=== PATIENT | female | born 1960 | race Caucasian/White ===

== ENCOUNTER 2020-03-15 13:59 | Outpatient (CLI) | payer OTHER, SELFPAY ==
--- NOTE | ~2020-03-15 | XR_ITS ---
EXAMINATION: XR chest 2V EXAM DATE: 03/15/2020 14:26 INDICATION: Preoperative. Hypertension. TECHNIQUE: Frontal and lateral projections of the chest obtained and reviewed. There is no prior clary dy for comparison. FINDINGS: The lungs are clear. There are no pleural effusions. The cardiomediastinal silhouette is within normal limits. There is no pneumothorax suspected. Mild thoracic spondylosis. IMPRESSION: No acute cardiopulmonary findings. Reviewed, dictated and finalized at location A.
== END 2020-03-15 14:00 | disposition home or self-care (01) ==
PROVIDERS: PCP Internal Medicine; Visit Provider Internal Medicine
DX: I10 Essential (primary) hypertension (principal)
CPT/HCPCS: 71046

== ENCOUNTER 2020-05-19 14:54 | Outpatient (CLI) | payer OTHER, SELFPAY ==
--- NOTE | ~2020-05-19 | MM_ITS ---
EXAMINATION: MM screening [facility] BI w alan HISTORY: Screening TECHNIQUE: Craniocaudal and mediolateral oblique 3-D tomosynthesis images were obtained and synthetic 2-D images were generated. CAD analysis was submitted and interpreted. COMPARISON: Comparison to multiple prior studies sequentially, with oldest reviewed study dated 05/31. BREAST PARENCHYMAL COMPOSITION: The breasts are heterogeneously dense, which may obscure small masses . FINDINGS: There are stable benign bilateral breast masses and calcifications. There is no evidence of suspicious mass, calcification, or architectural distortion to suggest malignancy in either breast. There has been no suspicious interval change. IMPRESSION: 1. No mammographic evidence of malignancy. 2. Recommend routine screening mammography in one year. BI-RADS Category 2: Benign finding(s). Reviewed, dictated and finalized at location A.
== END 2020-05-19 14:55 | disposition home or self-care (01) ==
LOC: CHSIMG 14:55
PROVIDERS: PCP Internal Medicine; Visit Provider Internal Medicine
DX: Z12.31 Encounter for screening mammogram for malignant neoplasm of breast (principal)
CPT/HCPCS: 77063; 77067

== ENCOUNTER 2021-06-11 13:25 | Outpatient (CLI) | payer OTHER, SELFPAY ==
--- NOTE | ~2021-06-11 | MM_ITS ---
EXAMINATION: MM screening [facility] BI w alan HISTORY: Screening TECHNIQUE: Craniocaudal and mediolateral oblique 3-D tomosynthesis images were obtained and synthetic 2-D images were generated. CAD analysis was submitted and interpreted. COMPARISON: Comparison to multiple prior studies sequentially, with oldest reviewed study dated 06/23. BREAST PARENCHYMAL COMPOSITION: The breasts are heterogenously dense, which may obscure small masses FINDINGS: There is no evidence of suspicious mass, calcification, or architectural distortion to sugg est malignancy in either breast. There has been no suspicious interval change. IMPRESSION: 1. No mammographic evidence of malignancy. 2. Recommend routine screening mammography in one year. BI-RADS Category 1: Negative Reviewed, dictated and finalized at location A.
== END 2021-06-11 13:26 | disposition home or self-care (01) ==
LOC: CHSIMG 13:26
PROVIDERS: PCP Internal Medicine; Visit Provider Internal Medicine
DX: Z12.31 Encounter for screening mammogram for malignant neoplasm of breast (principal)
CPT/HCPCS: 77063; 77067

== ENCOUNTER 2022-07-01 07:58 | Outpatient (CLI) | payer OTHER, SELFPAY ==
--- NOTE | ~2022-07-01 | MM_ITS ---
EXAMINATION: MM screening [facility] BI w alan HISTORY: Screening mammogram TECHNIQUE: Craniocaudal and mediolateral oblique 3-D tomosynthesis images were obtained and synthetic 2-D images were generated. CAD analysis was submitted and interpreted. COMPARISON: 06/11/2021, 05/19/2020 BREAST PARENCHYMAL COMPOSITION: The breasts are heterogeneously dense, which may obscure small masses . FINDINGS: There is no suspicious mass, calcification, or architectural distortion to suggest malignan cy in either breast. There has been no suspicious interval change. IMPRESSION: 1. No mammographic evidence of malignancy. 2. Recommend routine screening mammography in one year. BI-RADS Category 1: Negative Reviewed, dictated and finalized at location A.
== END 2022-07-01 07:59 | disposition home or self-care (01) ==
LOC: CHSIMG 07:59
PROVIDERS: PCP Internal Medicine; Visit Provider Internal Medicine
DX: Z12.31 Encounter for screening mammogram for malignant neoplasm of breast (principal)
CPT/HCPCS: 77063; 77067

== ENCOUNTER 2024-05-17 07:14 | Outpatient (CLI) | payer OTHER, SELFPAY ==
--- NOTE | ~2024-05-17 | MM_ITS ---
EXAMINATION: MM screening [facility] BI w alan HISTORY: Screening TECHNIQUE: Craniocaudal and mediolateral oblique 3-D tomosynthesis images were obtained and synthetic 2-D images were generated. CAD analysis was submitted and interpreted. COMPARISON: Comparison to multiple prior studies sequentially, with oldest reviewed study dated 09/13. BREAST PARENCHYMAL COMPOSITION: Not dense: There are scattered areas of fibroglandular density. FINDINGS: There is no evidence of suspicious mass, calcification, or architectural distortion to sugg est malignancy in either breast. There has been no suspicious interval change. IMPRESSION: 1. No mammographic evidence of malignancy. 2. Recommend routine screening mammography in one year. BI-RADS Category 1: Negative Reviewed, dictated and finalized at location B.
--- NOTE | ~2024-05-17 | US_ITS ---
EXAMINATION: US soft tissue LE RT DATE: 05/17/2024 08:10 INDICATION: Right leg mass. TECHNIQUE: Multiple grayscale and Doppler ultrasound images of the right lower limb were obtained. COMPARISON: None FINDINGS: There is no abnormal mass in the lateral right ankle soft tissues in the patient's area of concern. IMPRESSION: 1. No abnormal mass in the lateral right ankle soft tissues in the patient's area of concern. Reviewed, dictated and finalized at location A. IMPRESSION: 1. No abnormal mass in the lateral right ankle soft tissues in the patient's ar ea of concern.
== END 2024-05-17 07:15 | disposition home or self-care (01) ==
LOC: CHSIMG 07:15
PROVIDERS: PCP Internal Medicine; Visit Provider Internal Medicine
DX: Z12.31 Encounter for screening mammogram for malignant neoplasm of breast (principal); R22.41 Localized swelling, mass and lump, right lower limb
CPT/HCPCS: 76882; 77063; 77067

== ENCOUNTER 2024-05-29 09:51 | Outpatient (CLI) | payer OTHER, SELFPAY ==
--- NOTE | ~2024-05-29 | MR_ITS ---
EXAMINATION: MR lower leg RT wo/w con DATE: 05/29/2024 11:44 INDICATION: Right leg soft tissue swelling/mass TECHNIQUE: Magnetic resonance imaging (MRI) of the right lower leg was performed without and with 17 mL Multihance intravenous contrast. A marker was placed over the mass. Sequences included axial, sag ittal and coronal T1-weighted FSE, axial T2-weighted FS FSE, axial T1-weighted FS FSE and post contra st axial, sagittal and coronal T1-weighted FS FSE were also obtained. COMPARISON: None. FINDINGS: There is diffuse subcutaneous edema throughout the right lower leg with distal predominance. The unde rlying musculature and tendons in the right calf appears normal. There is normal bone marrow signal t hroughout with no reactive edema, fracture or pathologic marrow replacing process. Neurovascular stru ctures are unremarkable. No abnormal masses, fluid collections or other abnormally enhancing lesions identified. IMPRESSION: 1. Distal predominant diffuse subcutaneous edema at the right calf. No abnormal masses, fluid collect ions, abnormal enhancing lesions or other correlate identified for the reported palpable abnormality at the posterolateral right ankle/distal lower leg. Reviewed, dictated and finalized at location A. IMPRESSION: 1. Distal predominant diffuse subcutaneous edema at the right calf. No abnormal masses, fluid collections, abnormal enhancing lesions or other correlate ident ified for the reported palpable abnormality at the posterolateral right ankle/d istal lower leg.
== END 2024-05-29 09:52 | disposition home or self-care (01) ==
LOC: CHSIMG 09:51
PROVIDERS: PCP Internal Medicine; Visit Provider Internal Medicine
DX: M79.89 Other specified soft tissue disorders (principal)
CPT/HCPCS: 73720; A9577

== ENCOUNTER 2025-01-19 12:18 | Outpatient (CLI) | payer OTHER, SELFPAY ==
--- NOTE | ~2025-01-19 | CT_ITS ---
CLINICAL INDICATION: GI hemorrhage COMPARISON: None. TECHNIQUE: Multiple contiguous axial images of the abdomen and pelvis were performed following the ad ministration of with 100 mL Omnipaque-350 intravenous contrast. This was not a CTA examination. The dose-length product (DLP) was 920.46 mGy-cm. Automated exposure control and iterative reconstruction technique were employed. FINDINGS/OBSERVATIONS: Visualized lower thorax: The bilateral lung bases are clear. The heart is of normal size, without pericardial effusion. Small hiatal hernia is present. Liver: The liver demonstrates homogeneous enhancement and is not enlarged. Gallbladder and biliary system: The gallbladder is only minimally distended, and otherwise unremarkable. Pancreas: The pancreas enhances homogeneously without ductal dilatation. Spleen: The spleen enhances homogeneously and is not enlarged. Kidneys: 2 cm focus of decreased attenuation within the interpolar region of the right kidney, likely representing a cyst for which focused ultrasound may be performed as follow-up for confirmation. The remainder of the bilateral kidneys otherwise enhance symmetrically without hydronephrosis or alexis l calculi. Adrenal glands: Unremarkable. Gastrointestinal tract: Fecal stasis within the rectum. Colonic diverticulosis without surrounding inflammatory change. Appendix: The appendix is not definitively visualized. However, no pericecal inflammatory change is identified suggest the presence of acute appendicitis. Vasculature: Calcified atherosclerotic disease. Lymph nodes: No pathologically enlarged or morphologically suspicious lymph nodes within the retroperitoneum or at the root of the mesentery. Pelvic structures: The bladder is only minimally distended, and otherwise unremarkable. The uterus is anteverted and anteflexed and significantly nodular and enlarged for a patient of this age. Body wall and musculoskeletal: Small fat-containing umbilical hernia. Age-appropriate degenerative disease within the lumbosacral spine. IMPRESSION: No findings within the colon or along the course of the small bowel to suggest the presence of acute GI hemorrhage. The uterus is heterogeneous, nodular and enlarged for a patient of this age for which focused ultraso und is recommended for further evaluation, as a malignancy may also have a similar appearance. 2 cm focus of fluid attenuation within the right kidney, most likely a cyst for which focused ultraso und may be performed nonemergently for confirmation. Reviewed, dictated and finalized at location A. IMPRESSION: No findings within the colon or along the course of the small bowel to suggest the presence of acute GI hemorrhage. The uterus is heterogeneous, nodular and enlarged for a patient of this age for which focused ultrasound is recommended for further evaluation, as a malignanc y may also have a similar appearance. 2 cm focus of fluid attenuation within the right kidney, most likely a cyst for which focused ultrasound may be performed nonemergently for confirmation.
[2025-01-19 12:44] LABS: Basophils Absolute Auto 0.07 K/mm3 (0.00-0.10); Basophils Percent Auto 0.7 % (0.0-1.0); Eosinophils Absolute Auto 0.07 K/mm3 (0.02-0.50); Eosinophils Percent Auto 0.7 % (1.0-6.0); Hematocrit 31.3 % (35.0-42.0); Hemoglobin 10.4 g/dL (11.7-13.8); Immature Granulocyte Absolute 0.09 K/mm3 (0.00-0.00); Immature Granulocyte Percent A 0.9 % (0.0-0.0); Immature Reticulocyte Fraction 24.1 % (2.0-16.52); Lymphocytes Absolute Auto 1.76 K/mm3 (1.10-4.50); Lymphocytes Percent Auto 17.8 % (18.0-42.0); Mean Corpuscular HGB Conc 33.2 g/dL (32-36); Mean Corpuscular Hemoglobin 30.1 pg (27.0-31.0); Mean Corpuscular Volume 90.7 fL (78.0-102.0); Mean Platelet Volume 10.5 fl (9.2-11.8); Monocytes Absolute Auto 0.63 K/mm3 (0.10-0.90); Monocytes Percent Auto 6.4 % (2.0-11.0); Neutrophils Absolute Auto 7.27 K/mm3 (1.70-7.20); Neutrophils Percent Auto 73.5 % (50.0-70.0); Platelet Count Result 254 K/mm3 (150-420); Red Blood Count 3.45 M/mm3 (4.20-5.40); Red Cell Distribution Width 14.9 % (11.6-14.4); Reticulocyte Hemoglobin Conten 34.2 pg (28.0-35.0); Reticulocyte Percent 4.05 % (0.50-1.50); Reticulocytes Absolute 0.14 M/mm3 (0.02-0.10); White Blood Count 9.9 K/mm3 (4.8-10.8)
[2025-01-19 12:58] LABS: INR 0.9; Partial Thromboplastin Time 25.1 Sec (23.9-30.70); Prothrombin Time 10.1 Seconds (9.50-12.1)
[2025-01-19 13:17] LABS: Alanine Aminotransferase 23 U/L (14-59); Albumin Level 3.4 g/dL (3.4-5.0); Alkaline Phosphatase 103 U/L (46-116); Anion Gap 9 mmol/L (4-12); Aspartate Amino Transferase < 10 U/L (15-37); Bilirubin,Total 0.3 mg/dL (0.00-1.00); Blood Urea Nitrogen 16 mg/dL (7-18); Calcium 9.3 mg/dL (8.5-10.1); Carbon Dioxide 28 mmol/L (21-32); Chloride 99 mmol/L (98-108); Estimated Glomerular Filt Rate > 60; Ferritin 63 ng/mL (8-252); Glucose 282 mg/dL (70-99); Iron 64 ug/dL (50-170); Osmolality Calculated 293 mOsm/kg (285-295); Potassium 3.9 mmol/L (3.5-5.1); Sodium 136 mmol/L (136-145)
--- OUTSIDE RECORDS SUMMARY | 2025-01-19 13:39 | XMS_ITS | Clinical Summary ---
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 Gender Identity Not on file Sexual Orientation Not on file Plan of Treatment Health Maintenance Due Date Last Done Comments Colorectal Cancer Screening Colonoscopy (10 Years) 1960 Hepatitis C 1976 DTaP, Tdap and Td Vaccines ( 1 - Tdap) 1977 Mammogram Screening 1998 Zoster Vaccines (1 of 2) 2008 Dexa Scan (General) 2023 Pneumococcal Vaccine: 65+ Ye ars (1 of 1 - PCV) 2023 COVID-19 Vaccine ( - 2023-2 5 season) 2024 RSV Immunization or 60+ Years (1 - 1-dose 75+ series) 2033 Meningococcal B Vaccine Aged Out No l onger eligible based on patient's age to complete this topic Meningococcal Vaccine Aged Out No mirna yolanda eligible based on patient's age to complete this topic RSV Immunizations Under 20 Months Aged Out No longer eligible based on patient's age to complete this topic
[2025-01-22 15:22] LABS: H pylori, Urea Breath NOT DETECTED (NOT DETECTED)
== END 2025-01-19 12:19 | disposition home or self-care (01) ==
PROVIDERS: PCP Internal Medicine; Visit Provider Internal Medicine
DX: R10.13 Epigastric pain (principal); K92.2 Gastrointestinal hemorrhage, unspecified; R93.89 Abnormal findings on diagnostic imaging of other specified body structures
CPT/HCPCS: 36415; 74177; 80053; 82728; 83013; 83540; 85025; 85046; 85610; 85730; Q9967

== ENCOUNTER 2025-01-25 01:39 | Day surgery (SDC) | payer OTHER, SELFPAY ==
[2025-01-21 09:16] VITALS: BMI 33.7
--- OUTSIDE RECORDS SUMMARY | 2025-01-25 01:41 | XMS_ITS | Clinical Summary ---
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
[2025-01-25 07:41] VITALS: BP 130/72; PULSE 83; RESP 18; TEMP 36.3; O2SAT 100
[2025-01-25] MEDS: LACTATED RINGERS 1,000 ML 150 ML IV CONT (07:52)
[2025-01-25 07:58] LABS: Glucose Point of Care 194 mg/dl (65-105)
--- NOTE | 2025-01-25 08:01 | P.PNAN_ITS ---
Anes - Initial Pre Proc Eval Procedure: Operation Date: 01/25/25 08:45 Proposed Procedures p Esophagogastroduodenoscopy - Gonzalo Weinstein DO Date/Time: 01/25/25 08:01 Surgeon: Gonzalo Weinstein DO Pre Op Diagnosis: GI Bleed Patient Data Age: 64 Gender: F Height: 1.68 m Weight: 94 kg Last Vital Signs Temp 36.3 C L 01/25/25 07:41 Pulse 83 01/25/25 07:41 Resp 18 01/25/25 07:41 BP 130/72 01/25/25 07:41 Pulse Ox 100 01/25/25 07:41 O2 Del Method Room Air 01/25/25 07:41 Allergies Allergy/AdvReac Type Severity Reaction Status Date / Time latex Allergy Unknown Rash Verified 01/25/25 07:38 Home Medications ?Medication ?Instructions ?Recorded ?Confirmed ?Type atorvastatin 20 mg tablet 20 mg PO QPM 01/21/25 01/25/25 History glimepiride 4 mg tablet 4 mg PO BID 01/21/25 01/25/25 History lifitegrast 5 % eye drops in a 1 drp EACH EYE Q12H 01/21/25 01/25/25 History dropperette (Xiidra) linagliptin 5 mg tablet (Tradjenta) 5 mg PO DAILY 01/21/25 01/25/25 History losartan 100 1 tablet PO DAILY 01/21/25 01/25/25 History mg-hydrochlorothiazide 12.5 mg tablet ondansetron 4 mg disintegrating 4 mg PO Q4H PRN nausea and vomiting 01/21/25 01/21/25 History tablet pantoprazole 40 mg tablet,delayed 40 mg PO Q12H 01/21/25 01/25/25 History release pioglitazone 45 mg tablet 45 mg PO DAILY 01/21/25 01/25/25 History Laboratory Tests 01/25/25 07:52 POC Capillary Glucose 194 H mg/dl (65-105) Patient hx anesthesia problems: none Family hx anesthesia problems: none Results Review: All pre-operative results and documents have been reviewed as part of the pre- operative evaluation. [facility] Family History Family History Father Family history of diabetes mellitus in first degree relative Diabetes mellitus Sibling Family history of diabetes mellitus in first degree relative Grandparent Family history of malignant neoplasm of bone Social History Social History Smoking status: Never smoker Alcohol intake: never Substance use: never Substance use type: does not use Living arrangements: with family Spiritual care concerns: No Anes - Eval Final PreProcedure Day of Procedure 01/25/25 08:01 Patient weight: obese Heart: regular rate and rhythm Lungs: clear to auscultation Airway: Mallampati scale class II Neurological: alert and oriented Last oral intake: >/= 8 hours ASA classification: III Emergent: no Anesthetic plan: proceed Anesthesia type and monitoring: general GIVS and standard monitoring Results Review: All pre-operative results and documents have been reviewed as part of the pre- operative evaluation. Informed Consent: The patient's anesthetic plan and its attendant risks and benefits were discussed with the patient/family/POA. Questions were solicited and answers provided to the satisfaction of the patient/family/POA.
--- NOTE | 2025-01-25 08:31 | PM.IMHP ---
H&P: HPI History of Present Illness Date/Time: 01/25/25 08:31 Chief Complaint: iron deficiency anemia, GI bleed Narrative: this is a 64-year-old woman who presents with anemia and a recent episode of hematemesis. She has also noticed some black stools over the past few weeks. She denies any abdominal pain. She does have occasional acid reflux and dysphagia. She had a colonoscopy in 2018 which was normal. Review of Systems Review of Systems: All systems reviewed & are unremarkable except as noted in HPI and below Constitutional: Constitutional: Denies chills, Denies fever(s), Denies headache(s) and Denies weight loss Eyes: Eyes: Denies change in vision ENT: Denies dizziness, Denies headache(s), Denies neck mass and Denies throat swelling Cardiovascular: Cardiovascular: Denies chest pain, Denies lightheadedness and Denies dyspnea Respiratory: Respiratory: Denies cough, Denies dyspnea and Denies wheezing Gastrointestinal: Gastrointestinal: Denies abdominal pain, Denies change in bowel habits, Denies nausea and Denies vomiting Genitourinary: Genitourinary: Denies hematuria and Denies dysuria Musculoskeletal: Musculoskeletal: Reports as per HPI Integumentary/Breasts: Skin/Breast: Reports as per HPI Neurologic: Denies dizziness and Denies headache(s) Allergic/Immunologic: Allergic/Immunologic: Denies throat swelling and Denies wheezing [facility] Family History Family History Father Family history of diabetes mellitus in first degree relative Diabetes mellitus Sibling Family history of diabetes mellitus in first degree relative Grandparent Family history of malignant neoplasm of bone Social History Social History Smoking status: Never smoker Alcohol intake: never Substance use: never Substance use type: does not use Living arrangements: with family Spiritual care concerns: No Meds Home Medications and Allergies Home Medications ?Medication ?Instructions ?Recorded ?Confirmed ?Type atorvastatin 20 mg tablet 20 mg PO QPM 01/21/25 01/25/25 History glimepiride 4 mg tablet 4 mg PO BID 01/21/25 01/25/25 History lifitegrast 5 % eye drops in a 1 drp EACH EYE Q12H 01/21/25 01/25/25 History dropperette (Xiidra) linagliptin 5 mg tablet (Tradjenta) 5 mg PO DAILY 01/21/25 01/25/25 History losartan 100 1 tablet PO DAILY 01/21/25 01/25/25 History mg-hydrochlorothiazide 12.5 mg tablet ondansetron 4 mg disintegrating 4 mg PO Q4H PRN nausea and vomiting 01/21/25 01/21/25 History tablet pantoprazole 40 mg tablet,delayed 40 mg PO Q12H 01/21/25 01/25/25 History release pioglitazone 45 mg tablet 45 mg PO DAILY 01/21/25 01/25/25 History Allergies Allergy/AdvReac Type Severity Reaction Status Date / Time latex Allergy Unknown Rash Verified 01/25/25 07:38 Vital Signs Vital Signs - 24 hr 01/25/25 07:41 Temperature 97.4 F L Pulse Rate 83 Respiratory Rate 18 Blood Pressure 130/72 Pulse Oximetry 100 Oxygen Delivery Room Air Exam Const: General: no acute distress and alert Orientation/consciousness: patient oriented x3 HENMT: Head: normocephalic and atraumatic Ears: hearing grossly normal bilaterally Face/Nose/Sinus: Normal nares present Mouth: Yes Normal oral and palatal mucosa present Eyes: Periorbital: periorbital findings normal Sclera: sclerae normal EOM: EOMs intact bilaterally Neck: Neck: normal visual inspection, no lymphadenopathy and trachea midline Chest: Chest palpation & inspection: normal inspection of the chest Resp: Effort & Inspection: normal respiratory effort Auscultation: clear to auscultation bilaterally Cardio: Jugular venous distension: no JVD Rate: regular rate Rhythm: regular rhythm Heart sounds: S1 normal heart sound present and S2 normal heart sound present Peripheral pulses: Peripheral pulses 2+ throughout GI: Inspection: normal to inspection GI Palp: Yes Soft to palpation, No Tenderness to palpation present (GI), No Guarding due to palpation present (GI) and No Rebound tenderness present Percussion: Yes normal to percussion Auscultation: normal bowel sounds : General: Yes no CVA tenderness Back/Spine/Pelvis: Back: no CVA tenderness Neuro: General: patient oriented x3, no focal motor deficits and CN's II-XI intact bilaterally Cognition (Neuro): normal cognition Speech: normal speech Motor exam (neuro): 5/5 motor strength present throughout Extrem: General: capillary refill normal and no clubbing, cyanosis or edema Assessment and Plan Assessment and plan (1) GI bleed: Code(s): K92.2 - Gastrointestinal hemorrhage, unspecified Status: Acute Assessment and Plan: I have recommended EGD. I have discussed the procedure, risks, benefits, and alternatives. Questions were answered. Patient is agreeable to proceed. (2) Iron deficiency anemia: Code(s): D50.9 - Iron deficiency anemia, unspecified Status: Acute
[2025-01-25 08:48] VITALS: BP 112/67; PULSE 88; RESP 20; O2SAT 98
[2025-01-25 08:58] VITALS: BP 111/74; PULSE 78; RESP 23; O2SAT 96
[2025-01-25 09:08] VITALS: BP 122/72; PULSE 75; RESP 18; O2SAT 92
[2025-01-25 09:47] LABS: HPYLORIRESULT Negative (Negative)
== END 2025-01-25 09:27 | disposition home or self-care (01) ==
PROVIDERS: PCP Internal Medicine; Visit Provider Surgery
PROC: 0DJ08ZZ Inspection of Upper Intestinal Tract, Via Natural or Artificial Opening Endoscopic (ICD-10-PCS; CPT 43239; principal; 2025-01-25 08:45)
DX: K31.89 Other diseases of stomach and duodenum (principal); K25.3 Acute gastric ulcer without hemorrhage or perforation; K44.9 Diaphragmatic hernia without obstruction or gangrene; D50.9 Iron deficiency anemia, unspecified; E66.9 Obesity, unspecified; Z68.33 Body mass index [BMI] 33.0-33.9, adult; Z79.84 Long term (current) use of oral hypoglycemic drugs; Z80.8 Family history of malignant neoplasm of other organs or systems
CPT/HCPCS: 43239; 82948; 87081; 88305; J2704; J7120

== ENCOUNTER 2025-01-28 09:28 | Outpatient (CLI) | payer OTHER, SELFPAY ==
--- NOTE | ~2025-01-28 | US_ITS ---
Renal-Bladder ultrasound Clinical History: Renal cyst Technique: Real-time sonographic imaging of the kidneys and urinary bladder was performed. Findings: The right kidney measures 10.7 cm in length and the left kidney measures 10.6 cm. There is no hydronephrosis or renal calculus identified. Renal cortical echogenicity is within normal limits. Probable 2.3 cm right renal cyst present. The urinary bladder is partially distended at the time of this exam. No intraluminal echoes are ident ified. No abnormal wall thickening is seen. Impression: No significant abnormality seen. Small probable right renal cysts, as above. Reviewed, dictated and finalized at location . Impression: No significant abnormality seen. Small probable right renal cysts, as above.
--- NOTE | ~2025-01-28 | US_ITS ---
Pelvic ultrasound. Clinical History: Endometrial thickening Technique: Realtime transabdominal and transvaginal scanning of the pelvis was performed. Color flow Doppler and Doppler spectral analysis were performed. Findings: The uterus is anteverted, and measures 8.0 x 6.0 x 7.9 cm. The endometrial stripe has a th ickness of approximately 5 mm. Hypoechoic fibroid towards the left side measures 3.7 x 3.7 x 3.6 cm. Additional intramural fibroid slightly to the right side measures 3.7 x 3.4 x 4.2 cm. Third fibroid m easures 3.3 cm in diameter.. Neither ovary seen. No adnexal mass seen otherwise. There is no evidence of free fluid in the cul de sac. Impression: Fibroid uterus, as detailed above. Reviewed, dictated and finalized at location M. Impression: Fibroid uterus, as detailed above.
--- OUTSIDE RECORDS SUMMARY | 2025-01-28 09:32 | XMS_ITS | Clinical Summary ---
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
== END 2025-01-28 09:29 | disposition home or self-care (01) ==
LOC: CHSIMG 09:29
PROVIDERS: PCP Internal Medicine; Visit Provider Internal Medicine
DX: R93.89 Abnormal findings on diagnostic imaging of other specified body structures (principal); N28.1 Cyst of kidney, acquired; D25.9 Leiomyoma of uterus, unspecified
CPT/HCPCS: 76775; 76830; 76856

== ENCOUNTER 2025-08-01 12:46 | Outpatient (CLI) | payer OTHER, SELFPAY ==
--- NOTE | ~2025-08-01 | DEXA_ITS ---
Bone Density Report Name: FLEX LAZCANO Age: 64 Sex: Female Ethnicity: White Date of : 1960 Indication: postmenopausal; screening for osteoporosis; Referring Provider: Marissa Pack Study: Bone densitometry was performed. Exam Date: August 01, 2025 Accession number: [id number] Bone Density: Region BMD T-score Z-score Classification AP Spine(L1, L2, L3) 1.206 1.7 3.6 Normal Femoral Neck (Left) 0.793 -0.5 1.1 Normal Total Hip (Left) 0.942 0.0 1.3 Normal Femoral Neck (Right) 0.926 0.7 2.3 Normal Total Hip (Right) 0.962 0.2 1.5 Normal Femoral Neck Mean 0.859 0.1 1.7 Normal Total Hip Mean 0.952 0.1 1.4 Normal World Health Organization criteria for BMD impression classify patients as: Normal (T-score at or above -1.0), Osteopenia (T-score between -1.0 and -2.5), or Osteoporosis (T-score at or below -2.5). 10-year Fracture Risk: FRAX not reported because: All T-scores for Spine Total, Hip Total, Femoral Neck at or above -1.0 Clinical Information Provided by Patient: Has used the following medications: multi Patient maximum height was 66 Menopause Age: 48 No regular weight bearing exercise Drinks caffeinated beverages Onset of menses at age 8 Number of children 0 Impression: The patient has normal bone mass. Discussion: BONE DENSITY IS ABOVE THE MINIMUM DESIRABLE LEVEL AT ALL SKELETAL SITES TESTED. This patient?s bone mineral density is above the minimum desirable level (T-score -1.0 or better) at all sites measured. The patient should follow a healthful lifestyle (good nutrition with adequate calcium and vitamin D, and appropriate weight-bearing exercise). Follow-Up: Consider repeating this study in 5 years or sooner if there is some new clinical indication. Reported by: OPAL on 08/01/2025 1:25:00 PM. Reviewed, dictated and finalized at location A.
--- NOTE | ~2025-08-01 | MM_ITS ---
EXAMINATION: MM screening [facility] BI w alan HISTORY: Screening TECHNIQUE: Craniocaudal and mediolateral oblique 3-D tomosynthesis images were obtained and synthetic 2-D images were generated. CAD analysis was submitted and interpreted. COMPARISON: Comparison to multiple prior studies sequentially, with oldest reviewed study dated 06/11/2021. BREAST PARENCHYMAL COMPOSITION: Not dense: There are scattered areas of fibroglandular density. FINDINGS: There is no evidence of suspicious mass, calcification, or architectural distortion to suggest malignancy in either breast. There has been no suspicious interval change. IMPRESSION: 1. No mammographic evidence of malignancy. 2. Recommend routine screening mammography in one year. BI-RADS Category 1: Negative Reviewed, dictated and finalized at location O.
== END 2025-08-01 12:47 | disposition home or self-care (01) ==
LOC: CHSIMG 12:47
PROVIDERS: PCP Internal Medicine; Visit Provider Internal Medicine
DX: Z12.31 Encounter for screening mammogram for malignant neoplasm of breast (principal); Z78.0 Asymptomatic menopausal state
CPT/HCPCS: 77063; 77067; 77080